=== PATIENT | female | born 1945 | race Two or more races ===

== ENCOUNTER 2018-04-06 09:20 | Emergency (ER) | payer OTHER ==
[~2018-04-06] VITALS: Ht 149.9 cm; Wt 63.5 kg
[~2018-04-06 09:20] MED LIST: COZAAR25 MG; INTESTINEX680 MG PO; ZANTAC150 MG PO
[2018-04-06] MEDS ORDERED: TOPROL XL50 M1 (09:27)
[2018-04-06] MEDS ORDERED: HYDRALAZINE HCL25 MG (09:27)
== END 2018-04-06 10:40 | disposition home or self-care (01) ==
LOC: ER 09:20
DX: S30.0XXA Contusion of lower back and pelvis, initial encounter (principal); S50.11XA Contusion of right forearm, initial encounter; W06.XXXA Fall from bed, initial encounter; Y93.89 Activity, other specified; Y92.89 Other specified places as the place of occurrence of the external cause; Y99.8 Other external cause status

== ENCOUNTER 2018-04-08 10:20 | Outpatient (CLI) | payer OTHER ==
[~2018-04-08 10:20] MED LIST changes: +HYDRALAZINE HCL25 MG; +TOPROL XL50 M1
== END 2018-04-08 10:31 | disposition home or self-care (01) ==
LOC: NUCLEAR 10:20
DX: D75.89 Other specified diseases of blood and blood-forming organs (principal); D45 Polycythemia vera; K76.89 Other specified diseases of liver; D73.1 Hypersplenism
CPT/HCPCS: 78215; A9541

== ENCOUNTER 2018-04-08 12:30 | Emergency (ER) | payer OTHER ==
[~2018-04-08] VITALS: Ht 149.9 cm; Wt 58.5 kg
== END 2018-04-08 15:06 | disposition home or self-care (01) ==
LOC: ER 12:30
DX: M25.552 Pain in left hip (principal)

== ENCOUNTER → 2022-11-01 | Emergency (ER) | payer OTHER ==
[~2022-11-01] VITALS: Ht 149.9 cm; Wt 56.7 kg
[~2022-11-01] MED LIST changes: +ADULT LOW DOSE81 M1 PO; +ATACAND4 MG PO; +JAKAFI10 MG PO
== END | disposition home or self-care (01) ==
LOC: ER 16:40
DX: S01.511A Laceration without foreign body of lip, initial encounter (principal); W18.30XA Fall on same level, unspecified, initial encounter; Y93.89 Activity, other specified; Y92.89 Other specified places as the place of occurrence of the external cause; Y99.9 Unspecified external cause status; Z88.8 Allergy status to other drugs, medicaments and biological substances; I10 Essential (primary) hypertension